=== PATIENT | female | born 1985 | race Caucasian/White ===

== ENCOUNTER 2016-09-25 20:29 | Observation (INO) | payer OTHER ==
[2016-09-25 21:18] LABS: COLOR YELLOW; LEUKOCYTE ESTERASE,URINE 1+ (NEGATIVE); NITRITE,URINE NEGATIVE (NEGATIVE)
[2016-09-25 21:32] LABS: BACTERIA 1+ /hpf (NONE SEEN)
[2016-09-25] MEDS ORDERED: NITROFURANTOIN MACROBID 100 MG CAP PO ONE (22:00)
== END 2016-09-25 22:08 | disposition home or self-care (01) ==
LOC: FLD 20:29
PROVIDERS: ADMIT Midwife; ATTEND Midwife
DX: O99.89 Other specified diseases and conditions complicating pregnancy, childbirth and the puerperium (principal); R82.71 Bacteriuria; Z3A.30 30 weeks gestation of pregnancy
CPT/HCPCS: 59025; G0378

== ENCOUNTER 2016-11-22 05:20 | Inpatient (IN) | payer OTHER ==
[2016-11-22] MEDS ORDERED: LR 500 ML IV ONE (05:46)
[2016-11-22] MEDS ORDERED: CITRIC ACID/SODIUM CITRATE 30 ML UDCUP PO ONE (05:46)
[2016-11-22] MEDS ORDERED: ceFAZolin 2 GM/DEXTROSE 100 ML IV ONE (05:46)
[2016-11-22] MEDS ORDERED: LR 1,000 ML IV SCH (06:00)
[2016-11-22 06:19] LABS: % IMMATURE GRANULYOCYTES 1.7 % (0.0-1.1); ADD DIFF? NO; ADD MORPH? NO; ADD SCAN? NO; ATYPICAL LYMPHOCYTE FLAG 0 (0-99); FRAGMENT RBC FLAG 0 (0-99); HEMATOCRIT 39.3 % (38.0-47.0); HEMOGLOBIN 14.2 g/dL (12.6-16.3); LEFT SHIFT FLG 10 (0-99); LIPEMIA HEMOLYSIS FLAG 90 (0-99); MEAN CELL HEMOGLOBIN 32.4 pg (27.9-34.1); MEAN CELL HEMOGLOBIN CONCENTR. 36.1 g/dL (32.4-36.7); MEAN CELL VOLUME 89.7 fL (81.5-99.8); MEAN PLATELET VOLUME 10.4 fL (8.7-11.7); PLATELET CLUMPS FLAG 0 (0-99); PLATELET COUNT 275 10^3/uL (150-400); RED BLOOD CELL COUNT 4.38 10^6/uL (4.18-5.33); RED CELL DISTRIBUTION WIDTH 13.3 % (11.5-15.2)
[2016-11-22] MEDS ORDERED: morphINE PF 5 MG/10 ML INJ ONE (07:24)
[2016-11-22] MEDS ORDERED: fentaNYL 100 MCG/2 ML INJ ONE (07:24)
[2016-11-22] MEDS ORDERED: ONDANSETRON 4 MG/2 ML VIAL ONE ×2 (07:25)
[2016-11-22] MEDS ORDERED: OXYTOCIN 100 UNITS/10 ML VIAL ONE (07:25)
[2016-11-22] MEDS ORDERED: PHENYLEPHRINE HCL 100 MCG/ML SYR ONE ×2 (07:34→08:42)
[2016-11-22] MEDS ORDERED: LIDOCAINE 1% 30 ML SDV ONE (07:36)
[2016-11-22] MEDS ORDERED: AMMONIA AROMATIC 1 EACH AMP IH ONE (07:36)
[2016-11-22] MEDS ORDERED: TERBUTALINE SULFATE 1 MG/ML VIAL ONE (07:37)
[2016-11-22] MEDS ORDERED: OXYTOCIN 10 UNIT/ML VIAL ONE (07:37)
[2016-11-22] MEDS ORDERED: MISOPROSTOL 200 MCG TAB ONE (07:37)
[2016-11-22] MEDS ORDERED: PROPOFOL 200 MG/20 ML VIAL ONE (07:59)
[2016-11-22] MEDS ORDERED: ACETAMINOPHEN 325 MG TAB PO PRN (09:09)
[2016-11-22] MEDS ORDERED: SCOPOLAMINE HYDROBROMIDE 1.5 MG PATCH TD ONE ×2 (09:09→09:30)
[2016-11-22] MEDS ORDERED: SIMETHICONE 80 MG TAB CHEW PO PRN (09:09)
--- NOTE | 2016-11-22 09:09 | OBPROC ---
- Delivery Pre-op Diagnoses: 1) IUP at 39 weeks, 2) Breech Post-op Diagnoses: nirav Procedure: Primary, Low Transverse Surgeon: Harmony Zhang Foundation Maker: Evie Jimenez Anesthesiologist: Robson Hewitt Anesthesia: Spinal Complications: None Findings: normal uterus, tubes and ovaries IV Fluid (ml): 2,400 EBL: 800 cc Drains: Other (Specify) (anderson) - [place] Info A Delivery Date: 11/22/16 Delivery Time: 08:22 Sex of : Female [place] Weight (gm): 3662 g Score (1 Min): 8 Score (5 Min): 9
[2016-11-22] MEDS ORDERED: PHENYLEPHRINE HCL 100 MCG/ML SYR IVP PRN (09:27)
[2016-11-22] MEDS ORDERED: NALOXONE HCL 0.4 MG/ML INJ IVP PRN (09:27)
[2016-11-22] MEDS ORDERED: ONDANSETRON 4 MG/2 ML VIAL IVP PRN (09:27)
--- NOTE | 2016-11-22 09:36 | POSTANESTH ---
Post Anesthetic Evaluation Cardiovascular Status: Normal, Stable Respiratory Status: Normal, Stable, Similar to Pre-op Cond. Level of Consciousness/Mental Status: Can Participate in Eval, Alert and Oriented Pain Control: Adequate, Prn Tx Ordered Nausea/Vomiting Control: Adequate, Prn Tx Ordered Complications Possibly Related to Anesthesia: None Noted (Tolerated spinal well , BP treated, comfortable for surgery, to PACU, no pain or nausea.)
--- NOTE | 2016-11-22 09:39 | PREANESOB ---
Obstetric Pre-Anesthesia Info - General Info Proposed Procedure: C Section for breech. : 1 Para: 0 WBD: 39 - Info Status: Full Term Monitors: External FHR Baseline (bpm): 142 FHR Pattern: Reassuring - Labor Status Section History: Primary Indications for Current Section: Breech Labor Epidural: No Anesthesia ROS: Prior ureteral surgery. Allergies/Adverse Reactions: Allergy/AdvReac Type Severity Reaction Status Date / Time erythromycin base Allergy Verified 10/18/12 00:51 [Erythromycin Base] Home Medications: Medication Instructions Recorded Bupropion HCl [Wellbutrin 200mg SR] 150 mg PO 10/18/12 MAGNESIUM [Magnesium Oxide 200 mg] 1 tab PO DAILY 09/25/16 Vit27&Calcium/Iron/FA 1 each PO DAILY 09/25/16 [ Rx 1 Tablet (RX)] Ranitidine HCl [Zantac] 150 mg PO 09/25/16 Calcium 1 tab PO DAILY 11/22/16 Visit Medications: Generic Name Dose Route Start Last Admin Trade Name Freq PRN Reason Stop Dose Admin Acetaminophen 325 - 650 mg 11/22/16 09:09 Tylenol PO 05/21/17 09:08 Q3HRS PRN Pain, Mild Hydrocodone Bitart/Acetaminophen 1 - 2 tab 11/22/16 09:09 [place] 5/325 PO 12/02/16 09:08 Q4HRS PRN Pain, Moderate Diphenhydramine HCl 25 - 50 mg 11/22/16 09:27 Benadryl Injection IVP 05/21/17 09:26 Q6HRS PRN Itching Docusate Sodium 100 mg 11/22/16 09:09 Colace PO 05/21/17 09:08 BID PRN Constipation Lactated Ringer's 1,000 mls @ 125 mls/hr 11/22/16 06:00 11/22/16 05:40 Lr IV 05/21/17 05:59 1,000 mls CONT ANDREA Administration Ibuprofen 600 mg 11/22/16 09:09 Motrin PO 05/21/17 09:08 Q6HRS PRN Inflammation Ketorolac Tromethamine 30 mg 11/22/16 09:09 Toradol IVP 11/23/16 09:08 Q6HRS PRN Pain, Inflammatory Miscellaneous Information 1 ea 11/23/16 09:30 Patch Removal TD 11/23/16 09:31 Q24H ONE Naloxone HCl 0.4 mg 11/22/16 09:27 Narcan IVP 11/23/16 09:29 PRN PRN respiratory depression Ondansetron HCl 4 mg 11/22/16 09:27 Zofran IVP 05/21/17 09:26 Q4HRS PRN Nausea/Vomiting, Can't Take PO Phenylephrine HCl 100 mcg 11/22/16 09:27 Edil-Synephrine IVP 11/22/16 10:28 Q1M PRN Hypotension Scopolamine HBr 1.5 mg 11/22/16 09:30 Transderm-Scop TD 11/22/16 09:31 Q24H ONE Simethicone 80 mg 11/22/16 09:09 Mylicon PO 05/21/17 09:08 .TIDMEALS AND HS PRN Gas Discontinued Medications Generic Name Dose Route Start Last Admin Trade Name Freq PRN Reason Stop Dose Admin Ammonia (Aromatic Spirit) Confirm 11/22/16 07:36 Ammonia Aromatic Administered 11/22/16 07:37 Dose 1 each IH .STK-MED ONE Citric Acid/Sodium Citrate 30 ml 11/22/16 05:46 11/22/16 07:35 Bicitra PO 11/22/16 05:47 30 ml ONCALL ONE Administration Ephedrine Sulfate Confirm 11/22/16 07:36 Ephedrine Sulfate Administered 11/22/16 07:37 Dose 50 mg .ROUTE .STK-MED ONE Fentanyl Confirm 11/22/16 07:24 Sublimaze Administered 11/22/16 07:25 Dose 100 mcg .ROUTE .STK-MED ONE Cefazolin Sodium/Dextrose 100 mls @ 200 mls/hr 11/22/16 05:46 11/22/16 07:35 Ancef 2 Gm (Premix) IV 11/22/16 06:15 100 mls ONCALL ONE Administration Protocol Lactated Ringer's 500 mls @ 0 mls/hr 11/22/16 05:46 11/22/16 06:33 Lr IV 11/22/16 05:47 500 mls ONCE ONE Administration As Directed Lidocaine HCl Confirm 11/22/16 07:36 Lidocaine Hcl 1% Administered 11/22/16 07:37 Dose 30 ml .ROUTE .STK-MED ONE Misoprostol Confirm 11/22/16 07:37 Cytotec Administered 11/22/16 07:38 Dose 1,000 mcg .ROUTE .STK-MED ONE Morphine Sulfate Confirm 11/22/16 07:24 Morphine Pf 5 Mg/10 Ml Administered 11/22/16 07:25 Dose 5 mg .ROUTE .STK-MED ONE Ondansetron HCl Confirm 11/22/16 07:25 Zofran Administered 11/22/16 07:26 Dose 4 mg .ROUTE .STK-MED ONE Ondansetron HCl Confirm 11/22/16 07:25 Zofran Administered 11/22/16 07:26 Dose 4 mg .ROUTE .STK-MED ONE Oxytocin Confirm 11/22/16 07:25 Pitocin Administered 11/22/16 07:26 Dose 100 units .ROUTE .STK-MED ONE Oxytocin Confirm 11/22/16 07:37 Pitocin Administered 11/22/16 07:38 Dose 40 unit .ROUTE .STK-MED ONE Phenylephrine HCl Confirm 11/22/16 07:34 Edil-Synephrine Administered 11/22/16 07:35 Dose 1,000 mcg .ROUTE .STK-MED ONE Phenylephrine HCl Confirm 11/22/16 08:42 Edil-Synephrine Administered 11/22/16 08:43 Dose 1,000 mcg .ROUTE .STK-MED ONE Propofol Confirm 11/22/16 07:59 Diprivan Administered 11/22/16 08:00 Dose 200 mg .ROUTE .STK-MED ONE Scopolamine HBr Confirm 11/22/16 09:09 Transderm-Scop Administered 11/22/16 09:10 Dose 1.5 mg TD .STK-MED ONE Terbutaline Sulfate Confirm 11/22/16 07:37 Brethine Administered 11/22/16 07:38 Dose 1 mg .ROUTE .STK-MED ONE - Anesthesia History Response to Local Anesthetics: Normal Anesthesia & Operative History: No Prior Problems - Social History Substance Use/Abuse: Denies - Focused Exam Blood Pressure: 128/63 Heart Rate: 77 Respiratory Rate: 18 Height/Weight (Nursing): Height 166.37 cm Weight 94.801 kg Physical Exam: Within normal limits. ASA Status: II Labs: 11/22/16 06:00 Patient ABO/Rh O POSITIVE 11/22/16 06:00 - Plan Anesthetic Plan: SAB Consent Signed and on Chart: Yes Patient/Guardian Understands and Agrees to Plan: Yes
[2016-11-22] MEDS ORDERED: KETOROLAC 30 MG/1 ML SDV ONE (09:55)
[2016-11-22] MEDS: KETOROLAC 30 MG/1 ML SDV IVP PRN ×3 (10:01→23:22)
--- NOTE | 2016-11-22 13:37 | GOP ---
[f rep st] OPERATIVE REPORT DATE OF OPERATION: 11/22/2016 SURGEON: Harmony Zhang MD QUALITY CONTROL MICROBIOLOGIST: Evie Jimenez MD. ANESTHESIA: Spinal. PREOPERATIVE DIAGNOSIS: 1. Intrauterine at 39 weeks gestation. 2. Fetus in breech presentation. POSTOPERATIVE DIAGNOSIS: 1. Intrauterine at 39 weeks gestation. 2. Fetus in breech presentation. PROCEDURE PERFORMED: Primary low transverse section. FINDINGS: 1. Delivered a female , weighing 3662 g. Apgars of 8 and 9 at 0822 in the diann br eech presentation. 2. Normal uterus, fallopian tubes, and ovaries. SPECIMENS: None. ESTIMATED BLOOD LOSS: 800 cc. INDICATIONS: The patient is a 31-year-old, 1, para 0, female at 39 weeks gestation, with a fetus in breech presentation, who desires a primary delivery. She declines the option for version. Her baby has been in the breech presentation the entire 3rd trimester. DESCRIPTION OF PROCEDURE: Patient was taken to the operating room where spinal anesthesia was found to be adequate. Patient was prepared and draped in the normal sterile fashion in the dorsal supine position, with a left tilt. A surgical time-out was performed. Ancef 2 g IV was administered prio r to skin incision. After confirmation of adequate anesthesia, a low transverse skin incision was m kendra excising the prior scar from her bladder surgery. The incision was carried down to the level of the fascia using the scalpel and Bovie for hemostasis. The fascia was incised in the midline, exte nded laterally bilaterally with the Harrison scissors. The fascia was dissected off the rectus muscles superiorly and inferiorly with the Bovie. The peritoneal cavity was then entered bluntly and stretc hed open. An incision was made in the vesicouterine peritoneum with Metzenbaum scissors, and the bladder was d issected away digitally. A low transverse uterine incision was made and extended digitally. The ba by's buttocks were delivered easily and then the legs were delivered by flexing at the knee and hip. The baby was then wrapped with a moist green towel, and the arms were delivered by sweeping them a cross the chest. The baby's head was then delivered easily with fundal pressure. The baby was bulb suctioned and noted to have a spontaneous cry. The cord was doubly clamped and cut, and the baby w as handed off to the waiting nurse practitioner. The cord blood was obtained. The uterus was massaged and placenta delivered with uterine massage. The uterus was exteriorized on the matern al abdomen, and was wiped with dry lap sponges to remove all residual membranes. The uterine incisi on was closed with a running locked stitch of 0 Monocryl. A second layer was placed using the same suture for imbrication. The uterine incision was noted to be hemostatic. The uterine tone excellen t. The posterior cul-de-sac was irrigated with copious amounts of normal saline and noted to be mery ar. The uterus was placed back in the maternal abdomen. The gutters were wiped with moist lap spon ges bilaterally. The uterine incision was examined and noted to be hemostatic. The fascial surface s, the rectal muscle surfaces were examined closely, and hemostasis was obtained with use of the Bov ie. The fascia was closed with a running nonlocked stitch of #1 PDS. Subcutaneous tissue was irrig ated with copious amounts of normal saline, and reapproximated with interrupted stitches of 2-0 Vicr yl. The skin was then closed with a subcuticular stitch of 4-0 Monocryl. Steri-Strips and a bandag e dressing was placed. A vaginal Crede exam was performed with a small amount of blood and clot removed, and the cervix was dilated. All sponge, lap, and needle counts correct x2. Patient was transferred to the PACU in st able and good condition. COMPLICATIONS: None. DRAINS: [place] to gravity. URINE OUTPUT: 50 cc. IV FLUIDS: 2400 cc. /[id number]/MODL
[2016-11-23] MEDS: KETOROLAC 30 MG/1 ML SDV IVP PRN (05:10)
[2016-11-23 06:04] LABS: % IMMATURE GRANULYOCYTES 1.7 % (0.0-1.1); ABSOLUTE IMMATURE GRANULOCYTES 0.18 10^3/uL (0.00-0.10); ADD DIFF? NO; ADD MORPH? NO; ADD SCAN? NO; ATYPICAL LYMPHOCYTE FLAG 0 (0-99); FRAGMENT RBC FLAG 0 (0-99); HEMATOCRIT 34.1 % (38.0-47.0); HEMOGLOBIN 11.4 g/dL (12.6-16.3); LEFT SHIFT FLG 10 (0-99); LIPEMIA HEMOLYSIS FLAG 80 (0-99); MEAN CELL HEMOGLOBIN 31.2 pg (27.9-34.1); MEAN CELL HEMOGLOBIN CONCENTR. 33.4 g/dL (32.4-36.7); MEAN CELL VOLUME 93.4 fL (81.5-99.8); MEAN PLATELET VOLUME 10.2 fL (8.7-11.7); PLATELET CLUMPS FLAG 20 (0-99); PLATELET COUNT 188 10^3/uL (150-400); RED BLOOD CELL COUNT 3.65 10^6/uL (4.18-5.33); RED CELL DISTRIBUTION WIDTH 13.7 % (11.5-15.2)
--- NOTE | 2016-11-23 08:51 | SOAPPROG ---
SOAP Progress Note Assessment/Plan: Assessment: POD#1 s/p pLTCS for breech Recovering well Hct and vitals appropriate Pain controlled Rh +, RI, s/p tdap and flu vax Plan: Ambulation Transition to po meds Voiding after anderson removal Routine post care Abd binder 11/23/16 08:48 11/23/16 08:50 Subjective: Pain controlled. Passing small amount of flatus. Has ambulated. Anderson removed, hasn't yet voided on her own. Baby is latching. Tolerating regular diet. Bleeding appropriate. Objective: Vital Signs Temp Pulse Resp BP Pulse Ox 37.3 C 78 16 96/57 L 93 11/23/16 07:49 11/23/16 07:49 11/23/16 07:49 11/23/16 07:49 11/23/16 07:49 Laboratory Results 11/23/16 05:20 11/22/16 11/23/16 11/24/16 05:59 05:59 05:59 Intake Total 360 Output Total 2600 Balance -2240 Gen: alert, awake, NAD Breasts: soft Resp: unlabored CV: reg rate Abd: appropriate distention, soft, appropriately TTP Bandage: c/d/i Ext: warm, no edema ICD10 Worksheet Patient Problems: Problems Problem Status Onset delivery delivered Acute - ICD10 Problem Qualifiers (1) delivery delivered
[2016-11-23] MEDS: HYDROCODONE/APAP 5/325 TAB PO PRN ×4 (09:06→21:12)
[2016-11-23] MEDS: DOCUSATE SODIUM 100 MG CAP PO PRN ×2 (09:06→21:11)
[2016-11-23] MEDS ORDERED: PATCH REMOVAL 1 EA PATCH TD ONE (09:30)
[2016-11-23] MEDS: IBUPROFEN 600 MG TAB PO PRN ×2 (11:31→18:27)
[2016-11-24] MEDS: IBUPROFEN 600 MG TAB PO PRN ×4 (00:27→18:18)
[2016-11-24] MEDS: HYDROCODONE/APAP 5/325 TAB PO PRN ×3 (02:53→10:41)
--- NOTE | 2016-11-24 09:04 | OBPROG ---
OBG Progress Note Assessment/Plan: Assessment: POD#2 s/p pLTCS for breech - hemodynamically stable Recovering well Hct and vitals appropriate Pain controlled Rh +, RI, s/p tdap and flu vax Plan: Ambulation Routine post care Abd binder Discharge home tomorrow 11/24/16 09:03 Subjective: Pt feeling well, no complaints, ambulating, voiding, pain well controlled. Objective: 11/23/16 05:20 Patient ABO/Rh O POSITIVE 11/22/16 06:00 Temp Pulse Resp BP Pulse Ox 36.7 C 68 16 111/73 96 11/24/16 08:00 11/24/16 08:00 11/24/16 08:00 11/24/16 08:00 11/24/16 08:00 - Physical Exam General Appearance: WD/WN, alert, no apparent distress Respiratory: lungs clear Cardiac/Chest: regular rate, rhythm Abdomen: normal bowel sounds, non-tender, soft, other (incision c/d/i, fundus firm at U) ICD10 Worksheet Patient Problems: Problems Problem Status Onset delivery delivered Acute
[2016-11-24] MEDS: DOCUSATE SODIUM 100 MG CAP PO PRN ×2 (09:37→22:07)
[2016-11-24] MEDS ORDERED: OXYCODONE/APAP 5/325 TAB PO PRN (13:19)
[2016-11-24] MEDS: OXYCODONE/APAP 5/325 TAB PO PRN ×2 (18:17→22:07)
[2016-11-25] MEDS: IBUPROFEN 600 MG TAB PO PRN ×4 (00:26→20:09)
[2016-11-25] MEDS: OXYCODONE/APAP 5/325 TAB PO PRN ×5 (02:05→20:58)
[2016-11-25] MEDS ORDERED: ONDANSETRON DISINTEGRATING 4 MG TAB PO PRN (08:18)
[2016-11-25] MEDS ORDERED: MAGNESIUM HYDROXIDE 30 ML UDCUP PO PRN (08:19)
[2016-11-25] MEDS ORDERED: POLYETHYLENE GLYCOL 3350 17 GM PKT PO PRN (08:19)
[2016-11-25] MEDS ORDERED: BISACODYL 10 MG SUPP PR PRN (08:19)
[2016-11-25] MEDS ORDERED: LACTULOSE 20 GM/30 ML UDCUP PO PRN (08:19)
--- NOTE | 2016-11-25 08:26 | OBGCSDC ---
General Delivery Information - General Info : 1 Para: 1 Delivery Date: 11/22/16 Delivery Time: 08:22 Delivery Physician/CNM: Harmony Zhang Medical Clerical Assistant: Evie Jimenez Admission Date: 11/22/16 Labs: Patient ABO/Rh O POSITIVE 11/22/16 06:00 Hct 34.1 % (38.0-47.0) L 11/23/16 05:20 - Info Infant A Weight (gm): 3662 g Sex of : Female Score (1 Min): 8 Score (5 Min): 9 - Delivery IUP (Weeks): 39 Number of Prior Sections: 0 Indications for Prior Section: Other (Specify) Indications for Current Section: Breech Procedures: LTCS Intra-op Complications: None EBL: 800 cc Anesthesia: Spinal Discharge Information - Discharge Information Discharge Medications: Ibuprofen, Vitamins, Vicodin Condition: Good Instruction/Follow Up: Two Weeks Discharge Physician/CNM: Flavia Madrigal Discharge Date: 11/25/16 Dictated: No
[2016-11-25] MEDS: buPROPion XL 150 MG TAB PO SCH (08:43)
[2016-11-25] MEDS: DOCUSATE SODIUM 100 MG CAP PO PRN (13:00)
[2016-11-25] MEDS: SENNOSIDES/DOCUSATE SODIUM TAB PO SCH (13:01)
--- NOTE | 2016-11-25 16:28 | SOAPPROG ---
SOAP Progress Note Assessment/Plan: Assessment: Patient feeling unable go home today due to nausea, fatigue and concerns about baby. Plan: Anticipate discharge to home tomorrow. Social work ordered to see patient. 11/25/16 16:26 Objective: Vital Signs Temp Pulse Resp BP Pulse Ox 36.4 C 78 20 123/78 H 98 11/25/16 08:00 11/25/16 08:00 11/25/16 08:00 11/25/16 08:00 11/25/16 08:00 Laboratory Results 11/23/16 05:20 11/24/16 11/25/16 11/26/16 05:59 05:59 05:59 Output Total 2100 Balance -2100 ICD10 Worksheet Patient Problems: Problems Problem Status Onset delivery delivered Acute
[2016-11-26] MEDS: SENNOSIDES/DOCUSATE SODIUM TAB PO SCH ×2 (00:21→15:32)
[2016-11-26] MEDS: OXYCODONE/APAP 5/325 TAB PO PRN ×3 (02:06→12:06)
[2016-11-26] MEDS: IBUPROFEN 600 MG TAB PO PRN ×2 (02:06→09:10)
[2016-11-26] MEDS: DOCUSATE SODIUM 100 MG CAP PO PRN (09:09)
[2016-11-26] MEDS: buPROPion XL 150 MG TAB PO SCH (09:10)
[2016-11-26 09:43] VITALS: BP 113/74; PULSE 63; RESP 16; TEMP 98.2; O2SAT 97
--- NOTE | 2016-11-26 10:11 | OBGCSDC ---
General Delivery Information - General Info : 1 Para: 1 Delivery Date: 11/22/16 Delivery Time: 08:22 Delivery Physician/CNM: Harmony Zhang Casino Cashier Manager: Evie Jimenez Admission Date: 11/22/16 Labs: Patient ABO/Rh O POSITIVE 11/22/16 06:00 Hct 34.1 % (38.0-47.0) L 11/23/16 05:20 - Info Infant A Weight (gm): 3662 g Sex of : Female Score (1 Min): 8 Score (5 Min): 9 Vaginal - Diagnosis IUP (Weeks): 39 - Delivery IUP (Weeks): 39 Number of Prior Sections: 0 Indications for Prior Section: Other (Specify) Indications for Current Section: Breech Procedures: LTCS Intra-op Complications: None EBL: 800 cc Anesthesia: Spinal Discharge Information - Discharge Information Discharge Medications: Ibuprofen, Vitamins, Vicodin Condition: Good Instruction/Follow Up: Two Weeks Discharge Physician/CNM: Flavia Madrigal Discharge Date: 11/26/16 Dictated: No
== END 2016-11-26 12:15 | disposition home or self-care (01) | DRG 766 ==
LOC: FLD 05:20 → FOB 10:00
PROVIDERS: ADMIT Obstetrics & Gynecology; ATTEND Obstetrics & Gynecology
PROC: 10D00Z1 Extraction of Products of Conception, Low, Open Approach (ICD-10-PCS; principal; 2016-11-22)
DX: O32.1XX0 Maternal care for breech presentation, not applicable or unspecified (principal); Z3A.39 39 weeks gestation of pregnancy; Z37.0 Single live birth
CPT/HCPCS: J0690; J1885; J2274; J2370; J2405; J2590; J2704; J3010; J3105

== ENCOUNTER → 2016-11-29 | Outpatient (CLI) | payer OTHER | LOC: FLACT 12:55 | PROVIDERS: ATTEND Obstetrics & Gynecology | DX: O92.79 Other disorders of lactation (principal) | CPT/HCPCS: G0463 ==

== ENCOUNTER → 2016-12-13 | Outpatient (CLI) | payer OTHER | LOC: FLACT 12:37 | DX: Z39.0 Encounter for care and examination of mother immediately after delivery (principal) | CPT/HCPCS: G0463 ==